=== PATIENT | female | born 1950 | race American Indian/Alaskan Native ===

== ENCOUNTER 2016-08-09 09:38 | Outpatient (CLI) | payer MEDICARE ==
--- NOTE | 2016-08-10 08:32 | Nuclear Medicine Report ---
NUCLEAR MEDICINE GASTRIC EMPTYING SCAN: HISTORY: Diabetes, early satiety. FINDINGS: Anterior abdominal imaging was performed for 90 minutes following 1.0 mCi of technetium 99m sulfur colloid in oatmeal. The images demonstrate a half-life for gastric emptying measuring 55 minutes. There is no scintigraphic evidence for reflux disease. IMPRESSION: Normal gastric emptying.
== END 2016-08-09 09:39 | disposition home or self-care (01) ==
LOC: NM 09:38
PROVIDERS: ATTEND Internal Medicine
DX: E11.9 Type 2 diabetes mellitus without complications (principal); R68.81 Early satiety
CPT/HCPCS: 78264; A9541

== ENCOUNTER 2018-10-24 08:11 | Outpatient (CLI) | payer MEDICARE ==
[2018-10-24] MEDS ORDERED: XYLOCAINE TOPICAL 4% TP NR (09:00)
[2018-10-24] MEDS ORDERED: AD OINTMENT TP SCH (10:00)
== END 2018-10-24 08:12 | disposition home or self-care (01) ==
LOC: WOUND 08:11
PROVIDERS: ATTEND Surgery
DX: S80.12XA Contusion of left lower leg, initial encounter (principal); R22.42 Localized swelling, mass and lump, left lower limb; E11.9 Type 2 diabetes mellitus without complications; I11.0 Hypertensive heart disease with heart failure; I50.9 Heart failure, unspecified; M06.9 Rheumatoid arthritis, unspecified; E78.00 Pure hypercholesterolemia, unspecified; Z86.73 Personal history of transient ischemic attack (TIA), and cerebral infarction without residual deficits; W50.0XXA Accidental hit or strike by another person, initial encounter; Y93.89 Activity, other specified; Y92.89 Other specified places as the place of occurrence of the external cause; Y99.8 Other external cause status
CPT/HCPCS: 99205; A6250; G0463

== ENCOUNTER 2018-11-07 11:04 | Outpatient (CLI) | payer MEDICARE ==
[2018-11-07] MEDS ORDERED: XYLOCAINE TOPICAL 4% TP ONE (12:04)
[2018-11-08] MEDS ORDERED: AD OINTMENT TP SCH (10:00)
== END 2018-11-07 11:05 | disposition home or self-care (01) ==
LOC: WOUND 11:04
PROVIDERS: ATTEND Surgery
DX: R22.42 Localized swelling, mass and lump, left lower limb (principal); E11.9 Type 2 diabetes mellitus without complications; I11.0 Hypertensive heart disease with heart failure; I50.9 Heart failure, unspecified; M06.9 Rheumatoid arthritis, unspecified; E78.00 Pure hypercholesterolemia, unspecified; Z86.73 Personal history of transient ischemic attack (TIA), and cerebral infarction without residual deficits
CPT/HCPCS: 99215; G0463